=== PATIENT | male | born 1985 ===

== ENCOUNTER 2021-04-09 10:51 | Emergency (ER) | payer SELFPAY ==
[2021-04-09 12:51] VITALS: BP 118/82
--- NOTE | 2021-04-09 15:11 | Emergency Department Report ---
ED Abdominal Pain HPI - General Chief Complaint: Abdominal Pain Stated Complaint: ABD PAINS Time Seen by Provider: 04/09/21 14:34 Source: patient Mode of arrival: Ambulatory Limitations: No Limitations - History of Present Illness MD Complaint: abdominal pain - Related Data Allergies Allergy/AdvReac Type Severity Reaction Status Date / Time No Known Allergies Allergy Unverified 04/09/21 12:48 ED Review of Systems ROS: Stated complaint: ABD PAINS Other details as noted in HPI Comment: All other systems reviewed and negative ED Past Medical Hx - Past Medical History Previous Medical History?: No - Surgical History Past Surgical History?: No ED Physical Exam - General Limitations: No Limitations General appearance: alert, in no apparent distress - Head Head exam: Present: atraumatic, normocephalic - Eye Eye exam: Present: normal appearance ED Course Vital Signs 04/09/21 12:49 Temperature 97.8 F Pulse Rate 71 Respiratory 18 Rate Blood Pressure 118/82 O2 Sat by Pulse 98 Oximetry Critical care attestation.: If time is entered above; I have spent that time in minutes in the direct care of this critically ill patient, excluding procedure time. ED Disposition Condition: Stable
[2021-04-09 15:53] LABS: Bilirubin,Urine NEG (Negative); Blood,Urine NEG (Negative); Color,Urine Yellow (Yellow); Mucus,Urine 3+ /HPF; Urobilinogen,Urine < 2.0 mg/dL (<2.0)
[2021-04-09 15:57] LABS: Hematocrit 44.5 % (35.5-45.6); Mean Corpuscular HGB Conc 34 % (32-34); Mean Corpuscular Volume 90 fl (84-94); Platelet Count 155 K/mm3 (140-440); Red Blood Count 4.94 M/mm3 (3.65-5.03); Red Cell Distribution Width 13.2 % (13.2-15.2)
--- NOTE | 2021-04-09 16:01 | Event Note ---
ED Screening Note Date of service: 04/09/21 Time: 03:00 ED Screening Note: 36-year-old male presents to the emergency room complaining of abdominal pain that is diffuse since Thursday. Denies any fever chills no nausea no vomiting. This initial assessment/diagnostic orders/clinical plan/treatment(s) is/are subject to change based on patients health status, clinical progression and re- assessment by fellow clinical providers in the ED. Further treatment and workup at subsequent clinical providers discretion. Patient/guardian urged not to elope from the ED as their condition may be serious if not clinically assessed and managed. Initial orders include:
[2021-04-09 16:11] LABS: Alanine Aminotransferase 16 units/L (7-56); Albumin 4.1 g/dL (3.9-5); Blood Urea Nitrogen 17 mg/dL (9-20); Calcium 8.8 mg/dL (8.4-10.2); Hemolysis Index 47
[2021-04-09 16:18] LABS: BUN/Creatinine Ratio 24
[2021-04-09 17:08] LABS: RBC Morphology Normal; Total Cells Counted 100
[2021-04-09 17:09] LABS: Platelet Estimate Cons
--- NOTE | 2021-04-09 18:47 | Emergency Department Report ---
ED Abdominal Pain HPI - General Chief Complaint: Abdominal Pain Stated Complaint: ABD PAINS Time Seen by Provider: 04/09/21 14:34 Source: patient Mode of arrival: Ambulatory Limitations: No Limitations - History of Present Illness Initial Comments: [age]-year-old male presents emerged department complaining of having lower abdominal pain associated with diarrhea since this past Thursday after eating a meal. He reports no fever, chills, sweats reports no chest pain palpitation reports no hemoptysis no hematemesis hematochezia. MD Complaint: abdominal pain Location: diffuse Radiation: none Migration to: no migration Severity: mild, moderate Quality: dull Consistency: constant Improves With: nothing Worsens With: nothing Context: possible food poisoning Associated Symptoms: denies: diarrhea, chills, constipation, dysuria, hematemesis, melena, hematuria, anorexia - Related Data Previous Rx's Medication Instructions Recorded Last Taken Type Ciprofloxacin HCl 500 mg PO BID #10 tablet 04/09/21 Unknown Rx Hyoscyamine Subl [Levsin Sl 0.125 0.125 mg SL Q4HR PRN #20 tablet 04/09/21 Unknown Rx TAB] Allergies Allergy/AdvReac Type Severity Reaction Status Date / Time No Known Allergies Allergy Unverified 04/09/21 12:48 ED Review of Systems ROS: Stated complaint: ABD PAINS Other details as noted in HPI Comment: All other systems reviewed and negative ED Past Medical Hx - Past Medical History Previous Medical History?: No - Surgical History Past Surgical History?: No - Medications Home Medications: Home Medications Medication Instructions Recorded Confirmed Last Taken Type Ciprofloxacin HCl 500 mg PO BID #10 tablet 04/09/21 Unknown Rx Hyoscyamine Subl [Levsin Sl 0.125 0.125 mg SL Q4HR PRN #20 tablet 04/09/21 Unknown Rx TAB] ED Physical Exam - General Limitations: No Limitations General appearance: alert, in no apparent distress - Head Head exam: Present: atraumatic, normocephalic - Eye Eye exam: Present: normal appearance - ENT ENT exam: Present: mucous membranes moist - Neck Neck exam: Present: normal inspection - Respiratory Respiratory exam: Present: normal lung sounds bilaterally. Absent: respiratory distress - Cardiovascular Cardiovascular Exam: Present: regular rate, normal rhythm. Absent: systolic murmur, diastolic murmur, rubs, gallop - GI/Abdominal GI/Abdominal exam: Present: soft, tenderness (Mild tenderness to the lower abdomen with deep palpation. Abdomen is soft), normal bowel sounds. Absent: rebound, rigid, hypoactive bowel sounds, organomegaly, mass, bruit, pulsatile mass, hernia - Rectal Rectal exam: Present: deferred - Extremities Exam Extremities exam: Present: normal inspection, full ROM, normal capillary refill - Back Exam Back exam: Present: normal inspection. Absent: CVA tenderness (R), CVA tenderness (L) - Neurological Exam Neurological exam: Present: alert, oriented X3, CN II-XII intact, normal gait - Psychiatric Psychiatric exam: Present: normal affect, normal mood - Skin Skin exam: Present: warm, dry, intact, normal color. Absent: rash ED Course Vital Signs 04/09/21 12:49 Temperature 97.8 F Pulse Rate 71 Respiratory 18 Rate Blood Pressure 118/82 O2 Sat by Pulse 98 Oximetry ED Medical Decision Making - Lab Data Result diagrams: 04/09/21 14:59 04/09/21 14:59 Critical care attestation.: If time is entered above; I have spent that time in minutes in the direct care of this critically ill patient, excluding procedure time. ED Disposition Clinical Impression: Abdominal pain, Diarrhea Disposition: DC-01 TO HOME OR SELFCARE Is pt being admited?: No Does the pt Need Aspirin: No Condition: Stable Instructions: Diarrhea, Adult, Abdominal Pain, Adult Prescriptions: Ciprofloxacin HCl 500 mg PO BID #10 tablet Hyoscyamine Subl [Levsin Sl 0.125 TAB] 0.125 mg SL Q4HR PRN #20 tablet PRN Reason: Spasms Referrals: [facility] [Provider Group] - 3-5 Days [facility] [Primary Care Provider] - 3-5 Days
== END 2021-04-09 18:46 | disposition home or self-care (01) ==
LOC: ED 10:51
DX: R10.30 Lower abdominal pain, unspecified (principal); R19.7 Diarrhea, unspecified; Z79.899 Other long term (current) drug therapy
CPT/HCPCS: 36415; 80053; 81001; 83690; 85007; 85025